=== PATIENT | female | born 1995 | race Caucasian/White ===

== ENCOUNTER 2017-04-23 19:44 | Outpatient (CLI) | payer MEDICAID, OTHER ==
[~2017-04-23] VITALS: Ht 144.8 cm; Wt 65.6 kg
[~2017-04-23 19:44] MED LIST: ACET1TAB40 PO; AMO500 PO; IBUP400T22 PO
[2017-04-23 20:30] VITALS: Ht 144.8 cm; Wt 65.6 kg
[2017-04-23 20:31] VITALS: BP 117/68; PULSE 100; RESP 18
[2017-04-23] MEDS: LACTATED RINGER'S 1,000 ML IV SCH ×2 (21:10→22:29)
--- NOTE | 2017-04-23 21:13 | PN ---
Triage Information Date/Time 04/23/17, 9pm Weeks of Gestation 37 wks : 3 Para: 2 Diabetes: none Objective Vital Signs Date Time Temp Pulse Resp B/P Pulse Ox O2 Delivery O2 Flow Rate FiO2 04/23/17 20:31 98.4 100 18 117/68 Room Air Heart Rate: 130's Contractions: >10 Minutes Apart Exam l/c/p Assessment/Plan 21 yo P2 @ 38 wks, h/o prior c/d x 2, c/o ctx, approx every 10 min. Good FM, no LOF, no VB - reassuring status; cat I FHT - irreg ctx - will start IV hydration and re-examine in 2 hrs. If cervix unchanged and ctx diminished, d/c home ILEANA GRANADOS MD Apr 23, 2017 21:13
--- NOTE | 2017-04-24 07:58 | TRIAGE ---
OB Triage Datetime Report Generated by CPN: 04/24/2017 07:57 Datetime: 04/24/2017 00:00 Stage of : OB Triage Labor Evaluation Frequency: IRREGULAR Monitor Mode: External Duration (sec)2399: 60 Quality: Mild Pattern: Normal: <= 5 Contractions in 10 Minutes Resting Tone [place]: Relaxed Heart Rate FHR Baseline Rate: 125 Monitor Mode: External US FHR Baseline Changes: No Baseline Change Variability: Moderate 6-25 bpm Accelerations: 15X15 Decelerations: None Category: Category I Datetime: 04/23/2017 23:00 Labor Evaluation Frequency: IRREGULAR Monitor Mode: External Duration (sec)2399: 60 Quality: Mild Pattern: Normal: <= 5 Contractions in 10 Minutes Resting Tone [place]: Relaxed Heart Rate FHR Baseline Rate: 125 Monitor Mode: External US FHR Baseline Changes: No Baseline Change Variability: Moderate 6-25 bpm Accelerations: 15X15 Decelerations: None Category: Category I Datetime: 04/23/2017 22:39 Vaginal Exam Dilatation (cms): 0.0 Effacement (%): 0 Station: -3 Exam By: Aicha PACHECO RN Vaginal Bleeding: None Cervix, Consistency: Firm Cervix, Position: Posterior Datetime: 04/23/2017 22:00 Labor Evaluation Frequency: 8 Monitor Mode: External Duration (sec)2399: 60 Quality: Mild Pattern: Normal: <= 5 Contractions in 10 Minutes Resting Tone [place]: Relaxed Heart Rate FHR Baseline Rate: 135 Monitor Mode: External US FHR Baseline Changes: No Baseline Change Variability: Moderate 6-25 bpm Accelerations: 15X15 Decelerations: Variable Category: Category II Datetime: 04/23/2017 21:00 Labor Evaluation Frequency: IRREGULAR Monitor Mode: External Duration (sec)2399: 50-60 Quality: Mild Pattern: Normal: <= 5 Contractions in 10 Minutes Resting Tone [place]: Relaxed Heart Rate FHR Baseline Rate: 135 Monitor Mode: External US FHR Baseline Changes: No Baseline Change Variability: Moderate 6-25 bpm Accelerations: 15X15 Decelerations: None Category: Category I Datetime: 04/23/2017 20:28 EGA: 38.0 Datetime: 04/23/2017 20:26 Vaginal Exam Dilatation (cms): 0.0 Effacement (%): 0 Station: -3 Exam By: VINCENT MELLO Vaginal Bleeding: None Cervix, Consistency: Firm Cervix, Position: Posterior Datetime: 04/23/2017 20:21 Stage of : OB Triage Datetime: 04/23/2017 19:50 Stage of : OB Triage Assessment Type: Triage Time of Arrival: 04/23/2017 19:40 Arrived By: Wheelchair Arrived From: Home Chief Complaint: CONTRACTIONS Movement: Present Contractions: Irregular Time Contractions Began: 04/23/2017 18:00 Rupture of Membranes: Denies Vaginal Bleeding: None Vaginal Discharge: Denies Recent Sexual Intercouse: Denies Abdominal Trauma: Not Applicable Patient Complaints: None Time Provider Notified: 04/23/2017 20:21 Provider Notified: DR GRANADOS Initial Plan: CALL TERA LARRY Maternal Assessment Level of Consciousness: Fully Conscious DTR's/Clonus: DTRs 2+; No Clonus Headache: Denies Blurred Vision: No Respiratory Effort: Unlabored; Regular Rhythm; Equal Expansion Breath Sounds, Left: Clear and Equal Breath Sounds, Right: Clear and Equal Nausea/Vomiting: Denies RUQ Epigastric Pain: Denies Lower Extremities Edema: None Degree: None Upper Extremities Edema: None Degree: None Facial Edema: None Temperature Route: Oral Fall Risk Assessment History of Falling: (0) No Secondary Diagnosis: (0) No Ambulatory Aid: (0) Bedrest/Nurse Assist IV Therapy: (0) No Gait: (0) Normal/Bedrest/Immobile Mental Status: (0) Oriented to Own Ability Fall Score: 0 Fall Risk Score Definition: No Risk: No action required Monitor Mode: External Monitor Mode: External US Pain Assessment Pain Scale: 6 Pain Presence: Intermittent Pain Type: Contraction Pain Location: Abdomen; Back Datetime: 04/07/2017 23:39 Time of Arrival: 04/23/2017 19:40 Arrived By: Wheelchair Arrived From: Home Chief Complaint: CONTRACTIONS Movement: Present Contractions: Irregular Time Contractions Began: 04/23/2017 18:00 Rupture of Membranes: Denies Vaginal Bleeding: None Vaginal Discharge: Denies Recent Sexual Intercouse: Denies Abdominal Trauma: Not Applicable Patient Complaints: None Time Provider Notified: 04/23/2017 20:21 Provider Notified: DR GRANADOS Initial Plan: CALL , EFM
== END 2017-04-24 00:23 | disposition home or self-care (01) ==
LOC: OBT 19:44 → L-D 19:51 → OBT 04-24 00:23
PROVIDERS: ATTEND Obstetrics & Gynecology
DX: O26.893 Other specified pregnancy related conditions, third trimester (principal); Z3A.37 37 weeks gestation of pregnancy
CPT/HCPCS: 36415; 96360; 96361; J7120; Z7500; G0463

== ENCOUNTER 2017-05-01 10:00 | Inpatient (IN) | payer OTHER ==
[~2017-05-01] VITALS: Ht 144.8 cm; Wt 63.6 kg
[2017-05-03] MEDS ORDERED: OXYTOCIN 30 UNITS/LR 500 ML BAG IV ONE (07:00)
[2017-05-03 11:12] VITALS: Ht 144.8 cm; Wt 63.6 kg
[2017-05-03] MEDS ORDERED: OXYTOCIN 30 UNITS/LR 500 ML IV SCH (11:30)
[2017-05-03] MEDS ORDERED: CEFAZOLIN 2 GM/50 ML (PMX) 50 ML IV SCH (11:30)
[2017-05-03] MEDS ORDERED: METHYLERGONOVINE 0.2 MG INJ IM PRN ×2 (11:30→17:00)
[2017-05-03] MEDS ORDERED: CARBOPROST 250 MCG INJ IM PRN ×2 (11:30→17:00)
[2017-05-03] MEDS ORDERED: MISOPROSTOL 200 MCG TAB PR PRN ×2 (11:30→17:00)
[2017-05-03] MEDS: LACTATED RINGER'S 1,000 ML IV SCH ×2 (11:30→19:13)
[2017-05-03] MEDS ORDERED: OXYTOCIN 30 UNITS/LR 500 ML IV PRN ×2 (11:30→17:00)
[2017-05-03 11:47] LABS: ADD SCAN DIFF NO
[2017-05-03 11:52] LABS: BASOPHILS % 0.3 % (0.0-2.0); EOSINOPHILS # 0.2 10^3/ul (0.0-0.5); EOSINOPHILS % 1.3 % (0.0-7.0); HEMOGLOBIN 10.3 g/dl (12.0-16.0); LYMPHOCYTES # 1.4 10^3/ul (0.8-2.9); LYMPHOCYTES % 10.8 % (18.0-55.0); MEAN CORPUSCULAR HEMOGLOBIN 27.2 pg (29.0-33.0); MEAN CORPUSCULAR HGB CONC 32.2 g/dl (32.0-37.0); MEAN CORPUSCULAR VOLUME 84.7 fl (72.0-104.0); MEAN PLATELET VOLUME 10.5 fl (7.4-10.4); MONOCYTES % 8.1 % (0.0-13.0); NEUTROPHIL # 9.8 10^3/ul (1.6-7.5); NEUTROPHILS % 76.8 % (30.0-74.0); PLATELET COUNT 274 10^3/UL (140-415); RED BLOOD COUNT 3.78 10^6/ul (4.20-5.40); RED CELL DISTRIBUTION WIDTH 15.5 % (11.5-14.5); WHITE BLOOD COUNT 12.8 10^3/ul (4.8-10.8)
[2017-05-03] MEDS ORDERED: ONDANSETRON 4 MG INJ ONE (12:06)
[2017-05-03] MEDS ORDERED: CITRIC ACID/SODIUM CITRATE 15 ML CUP ONE (12:06)
[2017-05-03 12:20] LABS: INR 1.17; PT RATIO 1.2
[2017-05-03 12:21] LABS: PARTIAL THROMBOPLASTIN TIME 32.6 Sec (25.0-35.0)
[2017-05-03] MEDS ORDERED: CITRIC ACID/SODIUM CITRATE 15 ML CUP PO ONE (12:30)
[2017-05-03] MEDS ORDERED: ONDANSETRON 4 MG INJ IV PRN ×2 (12:30→13:00)
[2017-05-03] MEDS ORDERED: morphine SULFATE/PF (10 MG/10 ML) INJ ONE (12:31)
[2017-05-03] MEDS ORDERED: PHENYLephrine (100 MCG/ML) 5ML SYG ONE ×4 (12:39→13:24)
[2017-05-03] MEDS ORDERED: EPHEDrine SULFATE 50 MG/5 ML SYG ONE (12:50)
[2017-05-03] MEDS ORDERED: HYDROmorphONE (0.2 MG/ML) 10ML SYG IV PRN ×3 (13:00)
[2017-05-03] MEDS ORDERED: FENTAnyl 50 MCG/ML VIAL IV PRN ×2 (13:00)
[2017-05-03] MEDS ORDERED: ZOLPIDEM 5 MG TAB PO PRN (13:00)
[2017-05-03] MEDS ORDERED: HYDROmorphONE 1 MG/ML SYG IV PRN (13:00)
[2017-05-03] MEDS ORDERED: KETOROLAC 30 MG INJ IV PRN (13:00)
[2017-05-03] MEDS ORDERED: PROCHLORPERAZINE 10 MG INJ IV PRN (13:00)
[2017-05-03] MEDS ORDERED: DIPHENHYDRAMINE 50 MG INJ IV PRN ×2 (13:00)
[2017-05-03] MEDS ORDERED: NALOXONE (0.4 MG/ML) INJ IV PRN (13:00)
[2017-05-03] MEDS ORDERED: KETOROLAC 30 MG INJ IV ONE (13:00)
[2017-05-03] MEDS ORDERED: MEPERIDINE 25 MG INJ IV PRN (13:00)
--- NOTE | 2017-05-03 14:07 | HP ---
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12 history of total of 4 including present 2 previous section one a spontaneous and 2 living children Allergies denies allergy to any known medication Social habit denies a smoking drinking using illicit drugs Review of system within normal Physical examination 57 inches 140 pound chair 98.1 pulse 79 respiration 18 blood pressure 114/61 Head ears nose and throat negative Neck supple no thyromegaly Lungs clear to P&A Heart normal sinus rhythm no murmur Abdomen fundal height 36 cm from symphysis pubis heart rate category 1 Pelvic examination deferred Extremities no edema no varicosities Impression intrauterine at 39 weeks and 3 days history of 2 previous section preparing to undergo repeat for the third time he has been counseled regarding the complication of the surgery including bowel bladder injury infection hemorrhage and hematoma she is willing to go ahead with this procedure Past Family/Social History * Past Medical, Surgical, Family and Obstetric Histories reviewed from chart. OB Admission Exam Last 72 hours Lab Results CBC & BMP 05/03/17 11:12 OB Assessment/Plan Reason for admission: other (History of 2 previous section 39 weeks and 3 days) Plan: Section, Other (Repeat section) KEVON ARDON MD May 03, 2017 14:07
--- NOTE | 2017-05-03 14:54 | OPR ---
Operative Report Planned Procedure Free Text/Dictation 21 years old 39 weeks and 3 days history of 2 previous section admitted to [facility] to undergo repeat for the third time Procedure date May 03, 2017 Procedure(s) Repeat Performed by: KEVON ARDON MD Assisting provider: CARLOS ABRAMS MD Anesthesiologist: AUDREY MOCTEZUMA Pre-procedure diagnosis 2previou c section Anesthesia Type: spinal Procedure Description Under satisfactory [] anesthesia, the patient was prepped and draped and placed in a supine position, tilted to the left. Pfannenstiel incision was made, carried through the subcutaneous tissue. Bleeders brought under control with electrocautery. Fascia incised to the length of the incision. Rectus muscles from the fascia, divided midline. Peritoneum exposed, entered through a transverse incision. Exploration of abdomen revealed gravid uterus. Bladder flap was developed. Transverse incision was made in the lower segment of the uterus. Amniotic sac ruptured. [clear] amniotic fluid noted. [] Nasal oropharyngeal suction was performed. The baby was handed to the team for immediate attention. The placenta was delivered manually intact. Uterine cavity was cleaned with wet sponge and drainage established. Uterus closed in 2 layers using Monocryl1] in continuous fashion. Peritoneal cavity irrigated with warm saline. Sponge, needle and instrument count reported to be correct. Abdominal peritoneum closed with [2/0]cc continuously. Rectus muscle approximated with 2/0 cc[]. Fascia closed with no 1 pds[], and skin closed with eric. Estimated blood loss 600cc[]. Urine bag contained [200]mL of clear urine Post-Procedure Findings: Live Baby boy [], Apgars 9 9 and [], weight [], position [], [] presentation [] cord. Complications: None Pt Condition post procedure: stable Post-procedure comments uneventful Physician Certification I, the undersigned physician, hereby certify that I have discussed the procedure described in this consent form with this patient (or the patient's legal customer sales representative), including: * The risk and benefits of the procedure; * Any adverse reactions that may reasonably be expected to occur; * Any alternative efficacious methods of treatment which may be medically viable ; * The potential problems that may occur during recuperation; * Potential for blood transfusion and associated risks/benefits; and * Any research or economic interest I may have regarding this treatment. I further certify that the patient/legally responsible person was encouraged to ask question and that all questions were answered. KEVON ARDON MD May 03, 2017 14:54
[2017-05-03 16:43] VITALS: BP 114/75; PULSE 84; RESP 18
[2017-05-03 16:47] VITALS: BP 110/73; PULSE 76; RESP 18
[2017-05-03] MEDS ORDERED: ACETAMINOPHEN/CODEINE #3 TAB PO PRN ×2 (17:00)
[2017-05-03] MEDS ORDERED: LANOLIN 7 GM TUBE TOP PRN (17:00)
[2017-05-03] MEDS ORDERED: CEFAZOLIN 1 GM/50 ML (PMX) 50 ML IVPB SCH ×3 (17:00→21:00)
[2017-05-03] MEDS ORDERED: OXYCODONE/ACETAMINOPHEN (5/325) TAB PO PRN (17:00)
[2017-05-03 17:45] VITALS: BP 112/64; PULSE 78; RESP 19
[2017-05-03] MEDS: IBUPROFEN 600 MG TAB PO SCH (18:00)
[2017-05-03] MEDS: OXYTOCIN 30 UNITS/LR 500 ML IV SCH ×2 (18:04→23:29)
[2017-05-03 19:30] VITALS: BP 116/75; PULSE 87; RESP 19
[2017-05-03] MEDS: SENNA/DOCUSATE NA (8.6MG/50MG) TAB PO SCH (21:22)
[2017-05-03] MEDS: HYDROmorphONE 1 MG/ML SYG IV PRN (23:29)
[2017-05-04 00:29] VITALS: PULSE 72; RESP 19
[2017-05-04] MEDS: OXYTOCIN 30 UNITS/LR 500 ML IV SCH ×2 (00:35→03:31)
[2017-05-04] MEDS: LACTATED RINGER'S 1,000 ML IV SCH ×2 (03:13→07:24)
[2017-05-04 04:30] VITALS: BP 103/70; PULSE 83; RESP 20
[2017-05-04] MEDS: IBUPROFEN 600 MG TAB PO SCH ×5 (06:00→23:30)
[2017-05-04] MEDS: HYDROmorphONE 1 MG/ML SYG IV PRN ×2 (07:34→11:43)
[2017-05-04 08:20] VITALS: BP 102/56; PULSE 73; RESP 20
[2017-05-04 08:24] LABS: ADD SCAN DIFF NO
[2017-05-04 08:34] LABS: BASOPHILS % 0.3 % (0.0-2.0); EOSINOPHILS # 0.2 10^3/ul (0.0-0.5); EOSINOPHILS % 1.9 % (0.0-7.0); HEMATOCRIT 27.3 % (37.0-47.0); HEMOGLOBIN 8.8 g/dl (12.0-16.0); LYMPHOCYTES # 1.2 10^3/ul (0.8-2.9); LYMPHOCYTES % 10.1 % (18.0-55.0); MEAN CORPUSCULAR HEMOGLOBIN 27.2 pg (29.0-33.0); MEAN CORPUSCULAR HGB CONC 32.2 g/dl (32.0-37.0); MEAN CORPUSCULAR VOLUME 84.5 fl (72.0-104.0); MEAN PLATELET VOLUME 10.8 fl (7.4-10.4); MONOCYTE # 1.1 10^3/ul (0.3-0.9); MONOCYTES % 9.8 % (0.0-13.0); NEUTROPHIL # 8.7 10^3/ul (1.6-7.5); NEUTROPHILS % 76.4 % (30.0-74.0); PLATELET COUNT 237 10^3/UL (140-415); RED BLOOD COUNT 3.23 10^6/ul (4.20-5.40); RED CELL DISTRIBUTION WIDTH 15.4 % (11.5-14.5); WHITE BLOOD COUNT 11.4 10^3/ul (4.8-10.8)
[2017-05-04] MEDS: SENNA/DOCUSATE NA (8.6MG/50MG) TAB PO SCH ×2 (08:48→21:37)
--- NOTE | 2017-05-04 08:55 | PN ---
Date/Time of Note Date/Time of Note DATE: 05/04/17 TIME: 08:54 OB Subjective Subjective Subjective Post day 1 Afebrile vital signs stable abdomen soft mildly distended bowel sounds present lochia moderate incision dry extremities normal ambulation encouraged KEVON ARDON MD May 04, 2017 08:55
--- NOTE | 2017-05-04 09:08 | CONS ---
Date/Time of Note Date/Time of Note DATE: 05/04/17 TIME: 09:07 Consultation Date/Type/Reason Admit Date/Time May 03, 2017 at 08:54 Initial Consult Date 05/04/17 Type of Consultation: Anesthesiology Reason for Consultation Follow up 24 HR Interval Summary Free Text/Dictation Pt seen and examined at bedside is POD#1 s/p C/S. She states her pain is minimal. No N/V/D/C/ROMO/Numbness in extremities. Pt received a Duramorph spinal for post-op pain control which is working adequately. Will continue to follow. Constitutional: improved, no complaints Exam/Review of Systems Vital Signs Vitals Vital Signs Date Time Temp Pulse Resp B/P Pulse Ox O2 Delivery O2 Flow Rate FiO2 05/04/17 08:59 99 21 05/04/17 04:30 98.7 83 20 103/70 Room Air Intake and Output 05/03/17 05/03/17 05/04/17 15:00 23:00 07:00 Intake Total 1290 ml 1335 ml 1236 ml Output Total 1350 ml 1900 ml 1400 ml Balance -60 ml -565 ml -164 ml Results Result Diagram: 05/04/17 0745 Results 24 hrs Laboratory Tests Test 05/03/17 11:12 05/04/17 07:45 White Blood Count 12.8 H 11.4 H Red Blood Count 3.78 L 3.23 L Hemoglobin 10.3 L 8.8 L Hematocrit 32.0 L 27.3 L Mean Corpuscular Volume 84.7 84.5 Mean Corpuscular Hemoglobin 27.2 L 27.2 L Mean Corpuscular Hemoglobin Concent 32.2 32.2 Red Cell Distribution Width 15.5 H 15.4 H Platelet Count 274 237 Mean Platelet Volume 10.5 H 10.8 H Neutrophils % 76.8 H 76.4 H Lymphocytes % 10.8 L 10.1 L Monocytes % 8.1 9.8 Eosinophils % 1.3 1.9 Basophils % 0.3 0.3 Nucleated Red Blood Cells % 0.0 0.0 Neutrophils # 9.8 H 8.7 H Lymphocytes # 1.4 1.2 Monocytes # 1.0 H 1.1 H Eosinophils # 0.2 0.2 Basophils # 0.0 0.0 Nucleated Red Blood Cells # 0.0 0.0 Prothrombin Time 15.0 H Prothrombin Time Ratio 1.2 INR International Normalized Ratio 1.17 Activated Partial Thromboplast Time 32.6 Rapid Plasma Reagin NONREACTIVE Hepatitis B Surface Antigen NEGATIVE Medications Medications Current Medications Lactated Ringer's 1,000 ml @ 125 mls/hr Q8H IV Last administered on 05/04/17 07:24; Admin Dose 125 MLS/HR; Start 05/03/17 at 11:13 Oxytocin/Lactated Ringer's 500 ml @ 125 mls/hr ONCE IV Last administered on 15:13; Admin Dose 125 MLS/HR; Start 05/03/17 at 11:30 Ondansetron HCl (Zofran Inj) 4 mg Q4H PRN IV NAUSEA AND/OR VOMITING Last administered on 05/03/17 12:15; Admin Dose 4 MG; Start 05/03/17 at 12:30 Naloxone HCl (Narcan) 0.1 mg Q2M PRN IV FOR RESP RATE 8 OR LESS; Start at 13:00; Stop 05/04/17 at 12:59 Hydromorphone HCl (Dilaudid) 0.2 mg Q3H PRN IV PAIN LEVEL 1-5 Last administered on 05/04/17 07:34; Admin Dose 0.2 MG; Start 05/03/17 at 13:00; Stop 05/04/17 at 12:59 Diphenhydramine HCl (Benadryl) 25 mg Q6H PRN IV ITCHING; Start 05/03/17 at 13: 00; Stop 05/04/17 at 12:59 Acetaminophen/ Codeine Phosphate (Tylenol No.3) 1 tab Q4H PRN PO PAIN LEVEL 4-6 ; Start 05/03/17 at 17:00 Acetaminophen/ Codeine Phosphate (Tylenol No.3) 2 tab Q4H PRN PO PAIN LEVEL 7- 10; Start 05/03/17 at 17:00 Oxycodone/ Acetaminophen (Percocet (5/ 325)) 1 tab Q4H PRN PO PAIN LEVEL 4-6; Start 05/03/17 at 17:00 Oxycodone/ Acetaminophen (Percocet (5/ 325)) 2 tab Q4H PRN PO PAIN LEVEL 7-10; Start 05/03/17 at 17:00 Ibuprofen (Motrin) 600 mg Q6 PO ; Start 05/03/17 at 18:00 Simethicone (Mylicon) 160 mg Q8H PRN PO DISTENSION/GAS/BLOATING; Start at 17:00 Senna/Docusate Sodium (Senokot-S) 1 tab BID PO Last administered on 05/04/17 08:48; Admin Dose 1 TAB; Start 05/03/17 at 21:00 Diphtheria/ Tetanus/Acell Pertussis 0.5 ml 0.5 ml ONCE ONCE IM* ; Start at 09:00; Stop 05/06/17 at 09:01 Oxytocin/Lactated Ringer's 500 ml @ 0 mls/hr ONCE PRN IV For Hemorrhage Management; Start 05/03/17 at 17:00 Methylergonovine Maleate (Methergine) 0.2 mg ONCE PRN IM VAGINAL BLEEDING; Start 05/03/17 at 17:00 Carboprost Tromethamine (Hemabate) 250 mcg ONCE PRN IM VAGINAL BLEEDING; Start 05/03/17 at 17:00 Misoprostol 1000 mcg 1,000 mcg ONCE PRN ND VAGINAL BLEEDING; Start 05/03/17 at 17:00 Oxytocin/Lactated Ringer's 500 ml @ 125 mls/hr Q4H IV Last administered on 03:31; Admin Dose 125 MLS/HR; Start 05/03/17 at 16:35 AUDREY MOCTEZUMA May 04, 2017 09:08
[2017-05-04 12:30] VITALS: BP 117/56; PULSE 90; RESP 18
[2017-05-04 16:55] VITALS: BP 101/50; PULSE 77; RESP 19
[2017-05-04 19:30] VITALS: BP 99/56; PULSE 82; RESP 18
[2017-05-05 04:14] VITALS: BP 103/52; PULSE 86; RESP 18
[2017-05-05] MEDS: IBUPROFEN 600 MG TAB PO SCH ×4 (05:41→23:33)
[2017-05-05] MEDS: OXYCODONE/ACETAMINOPHEN (5/325) TAB PO PRN (07:18)
[2017-05-05 08:10] VITALS: BP 111/64; PULSE 96; RESP 14
[2017-05-05] MEDS: SENNA/DOCUSATE NA (8.6MG/50MG) TAB PO SCH ×2 (08:44→21:05)
--- NOTE | 2017-05-05 12:19 | PN ---
Date/Time of Note Date/Time of Note DATE: 05/05/17 TIME: 12:18 OB Subjective Subjective Subjective Post day 2 Afebrile vital signs stable abdomen soft incision dry good bowel sounds patient had bowel movement plan of a.m. discharge discussed . KEVON ARDON MD May 05, 2017 12:19
[2017-05-05 16:44] VITALS: BP 116/54; PULSE 90; RESP 16
[2017-05-05 20:00] VITALS: BP 99/54; PULSE 87; RESP 18
[2017-05-06] MEDS: OXYCODONE/ACETAMINOPHEN (5/325) TAB PO PRN (01:57)
[2017-05-06 04:00] VITALS: BP 115/56; PULSE 96; RESP 18
[2017-05-06] MEDS: IBUPROFEN 600 MG TAB PO SCH ×2 (05:38→11:53)
[2017-05-06 08:00] VITALS: BP 109/53; PULSE 96; RESP 16
[2017-05-06] MEDS ORDERED: DIPHTH/TET/ACEL PERTUSS (ADULT) 0.5 ML VIAL IM* ONE (09:00)
[2017-05-06] MEDS: SENNA/DOCUSATE NA (8.6MG/50MG) TAB PO SCH (09:30)
--- NOTE | 2017-05-06 10:07 | PD.PPDC ---
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 Condition Patient Condition: Good Diet Diet: Resume Regular Diet Activity/Restrictions Restrictions: No Exercising No Lifting No Driving No Sexual Activity Nothing in the Vagina No [place] No Tampons, douche Wound/Drain Care Instructions Wound/Drain Care Instructions: Remove Steri Strips in 1 week Follow-up Follow-up with Physician: 3, Day/Days Provider Information: Appointment clinic in 3 days to discontinue eric Referral Agency Name and Phone Number: [facility] Return to clinic for SENIOR [facility]A TESTER Instructions: Fever greater than 101 Chills Worsening abdominal pain Excessive Vaginal Bleeding More than 2 pads per hour Unable to tolerate diet OB Instructions: Breast Tenderness Depression Blurried Vision Headache Surgical Instructions: Incisional Drainage Incisional Redness KEVON ARDON MD May 06, 2017 10:07
--- NOTE | 2017-05-06 10:10 | DS ---
Date/Time of Note Date/Time of Note DATE: 05/06/17 TIME: 10:09 Discharge Summary Admission/Discharge Info Admit Date/Time May 03, 2017 at 08:54 Discharge Date/Time May 06 at 10:05 AM Patient Condition: Good Procedures Repeat section Hx of Present Illness 39 weeks plus history of 2 previous section Hospital Course Satisfactory uneventful Home Meds No Active Prescriptions or Reported Meds Follow-up Plan Appointment clinic in 4 days to discontinue eric Primary Care Provider Judy Chiu Time spent on discharge: < 30 minutes KEVON ARDON MD May 06, 2017 10:10
== END 2017-05-06 13:45 | disposition home or self-care (01) | DRG 766 ==
LOC: L-D 05-03 08:54 → PP1 05-03 16:31
PROVIDERS: ADMIT Obstetrics & Gynecology; ATTEND Obstetrics & Gynecology
PROC: 10D00Z1 Extraction of Products of Conception, Low, Open Approach (ICD-10-PCS; principal; 2017-05-03 12:30)
DX: O34.219 Maternal care for unspecified type scar from previous cesarean delivery (principal); Z37.0 Single live birth; Z3A.39 39 weeks gestation of pregnancy
CPT/HCPCS: 85025; 85610; 85730; 86592; 86850; 86900; 86901; 87340; 90715; 94760; 99464; J0690; J1170; J1885; J2274; J2370; J2405; J2590; J3010; J7120